=== PATIENT | male | born 1985 | race Caucasian/White ===

== ENCOUNTER 2022-05-19 11:39 | Emergency (ER) | payer BC ==
[2022-05-19] MEDS ORDERED: CEPHALEXIN500 M1 PO (13:15)
== END 2022-05-19 13:28 | disposition home or self-care (01) ==
LOC: ER1 11:39
DX: S00.85XA Superficial foreign body of other part of head, initial encounter (principal); S00.551A Superficial foreign body of lip, initial encounter; G40.909 Epilepsy, unspecified, not intractable, without status epilepticus; R40.2410 Glasgow coma scale score 13-15, unspecified time; W45.8XXA Other foreign body or object entering through skin, initial encounter
CPT/HCPCS: 90471; 90715; 99283